=== PATIENT | male | born 1980 | race Hispanic/Latino ===

== ENCOUNTER → 2024-02-27 09:35 | Outpatient (REF) | payer BC, SELFPAY ==
[2024-02-27 12:39] LABS: Glycohemoglobin (HgbA1c) 5.9 % (4.0-5.6)
== END ==
LOC: REG 09:35
PROVIDERS: ATTENDING PHYSICIAN Student in an Organized Health Care Education/Training Program
DX: E11.65 Type 2 diabetes mellitus with hyperglycemia (principal)
CPT/HCPCS: 36415; 83036

== ENCOUNTER → 2024-06-22 16:21 | Outpatient (REF) | payer BC, SELFPAY ==
[2024-06-23 08:34] LABS: Glycohemoglobin (HgbA1c) 6.2 % (4.0-5.6)
== END ==
LOC: REG 16:21
PROVIDERS: ATTENDING PHYSICIAN Student in an Organized Health Care Education/Training Program
DX: E11.65 Type 2 diabetes mellitus with hyperglycemia (principal)
CPT/HCPCS: 36415; 83036

== ENCOUNTER → 2024-09-17 10:07 | Outpatient (REF) | payer BC, SELFPAY ==
[2024-09-17 11:06] LABS: % Basophils 0.1 % (0-2); % Eosinophils 1.2 % (0-6); % Immature Granulocytes 0.1 % (0-0.5); % Lymphocytes 21.6 % (20.5-51.1); % Monocytes 4.4 % (1.7-9.3); % Neutrophils 72.6 % (42.2-75.2); Absolute Eosinophils 0.1 10^3/uL (0-0.7); Absolute Lymphocytes 1.6 10^3/uL (1.2-3.4); Absolute Monocytes 0.3 10^3/uL (0.1-0.6); Absolute Neutrophils 5.5 10^3/uL (1.4-6.5); Hematocrit 43.4 % (39.0-52.0); Mean Corp Hgb Conc. 34.6 g/dL (33.0-37.0); Mean Corpuscular Hgb 30.7 pg (27.0-31.0); Mean Corpuscular Volume 88.9 fL (80.0-94.0); Mean Platelet Volume 9.3 fL (7.4-10.4); Nucleated Red Blood Cells % 0 % (-); Platelet Count 275 10^3/uL (130-400); Red Blood Cell Count 4.88 10^6/uL (4.70-6.10); Red Cell Dist. Width 12.7 % (11.5-14.5); White Blood Cell Count 7.5 10^3/uL (4.8-10.8)
[2024-09-17 11:33] LABS: ALT (SGPT) 30 U/L (0-50); AST (SGOT) 25 U/L (17-59); Albumin 4.6 g/dl (3.5-5.0); Alkaline Phosphatase 96 U/L (38-126); Blood Urea Nitrogen 13 mg/dl (9-20); Calcium 9.4 mg/dl (8.4-10.2); Carbon Dioxide 28 mmol/L (22-30); Chloride 101 mmol/L (98-107); Glucose 105 mg/dl (70-99); HDL Cholesterol 57 mg/dl; LDL Cholesterol, Calculated 68 mg/dl; Potassium 4.6 mmol/L (3.5-5.1); Sodium 140 mmol/L (135-145); Total Bilirubin 0.3 mg/dl (0.2-1.3); Total Cholesterol 137 mg/dl (50-199); Total Protein 7.3 g/dl (6.3-8.2); Triglyceride 61 mg/dl (10-149); Very Low Density Lipoprotein 12 mg/dl (0-30); eGFR > 60.00
== END ==
LOC: REG 10:07
PROVIDERS: ATTENDING PHYSICIAN Student in an Organized Health Care Education/Training Program
DX: E11.9 Type 2 diabetes mellitus without complications (principal); E78.2 Mixed hyperlipidemia
CPT/HCPCS: 36415; 80053; 80061; 85025

== ENCOUNTER → 2025-09-30 07:25 | Outpatient (REF) | payer BC, SELFPAY ==
[2025-09-30 08:20] LABS: Hematocrit 43.9 % (39.0-52.0); Hemoglobin 15.6 g/dL (13.0-18.0); Mean Corp Hgb Conc. 35.5 g/dL (33.0-37.0); Mean Corpuscular Volume 85.4 fL (80.0-94.0); Nucleated Red Blood Cells % 0 % (-); Platelet Count 259 10^3/uL (130-400); Red Cell Dist. Width 12.0 % (11.5-14.5)
[2025-09-30 08:57] LABS: ALT (SGPT) 23 U/L (0-50); AST (SGOT) 18 U/L (17-59); Albumin 4.5 g/dl (3.5-5.0); Alkaline Phosphatase 121 U/L (38-126); Blood Urea Nitrogen 15 mg/dl (9-20); Calcium 9.0 mg/dl (8.4-10.2); Carbon Dioxide 29 mmol/L (22-30); Chloride 101 mmol/L (98-107); Glucose 226 mg/dl (70-99); HDL Cholesterol 49 mg/dl; LDL Cholesterol, Calculated 122 mg/dl; Potassium 4.2 mmol/L (3.5-5.1); Sodium 136 mmol/L (135-145); Total Protein 7.7 g/dl (6.3-8.2); Very Low Density Lipoprotein 41 mg/dl (0-30); eGFR > 60.00
[2025-09-30 09:17] LABS: Microalb - Urine Creatinine 90.200 mg/dl
[2025-09-30 09:18] LABS: Microalbumin, Random Urine 5.7 mg/dl (0.6-1.7)
[2025-09-30 09:22] LABS: Glycohemoglobin (HgbA1c) 9.4 % (4.0-5.9)
[2025-09-30 09:29] LABS: TSH 1.83 uIU/ml (0.47-4.68)
== END ==
LOC: REG 07:25
PROVIDERS: ATTENDING PHYSICIAN Student in an Organized Health Care Education/Training Program
DX: E11.9 Type 2 diabetes mellitus without complications (principal); E78.2 Mixed hyperlipidemia; R80.9 Proteinuria, unspecified; E66.3 Overweight
CPT/HCPCS: 36415; 80053; 80061; 82043; 82570; 83036; 84439; 84443; 85025